=== PATIENT | male | born 1985 | race Caucasian/White ===

== ENCOUNTER 2017-08-12 09:44 | Emergency (ER) | payer OTHER ==
[2017-08-12 09:53] VITALS: BP 155/102; PULSE 63; TEMP 98.3; BMI 32.9
[2017-08-12] MEDS ORDERED: IBUPROFEN 600 MG TABLET (FP) PO ONE ×2 (10:58→10:59)
--- NOTE | 2017-08-12 11:06 | PDOC ---
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 States pain is worse on the right than the left, however is ambulatory. Denies numbness or tingling to feet. No other injury Occurred: reports: just prior to arrival, this morning Severity: reports: mild, moderate Pain Location: reports: lower extremity (bilateral upper lateral knee area) Method of Injury: Yes: direct blow Modifying Factors: improves with: None Loss of Consciousness: no loss of consciousness Associated Symptoms (Fall): denies symptoms Past History - Travel Traveled outside of the country in the last 30 days: No Close contact w/someone who was outside of country & ill: No - Past Medical History Allergies/Adverse Reactions: Allergies Allergy/AdvReac Type Severity Reaction Status Date / Time No Known Allergies Allergy Verified 08/12/17 09:48 Home Medications: Ambulatory Orders Ibuprofen 600 mg PO Q6H PRN #30 tablet 08/12/17 COPD: No Other medical history: denies. - Suicide/Smoking/Psychosocial Hx Smoking History: Current every day smoker Have you smoked in the past 12 months: Yes Number of Cigarettes Smoked Daily: 1 Information on smoking cessation initiated: No Review of Systems - Review of Systems Able to Perform ROS?: Yes Is the patient limited Macedonian proficient: Yes Constitutional: Yes: See HPI. No: Symptoms Reported, Malaise HEENTM: No: Symptoms Reported Musculoskeletal: Yes: Symptoms Reported, See HPI, Joint Pain, Muscle Pain Integumentary: Yes: Symptoms Reported, See HPI, Bruising, Rash Neurological: No: Symptoms reported All Other Systems: Reviewed and Negative *Physical Exam - Vital Signs Last Vital Signs Temp Pulse Resp BP Pulse Ox 98.3 F 63 19 155/102 96 08/12/17 09:49 08/12/17 09:49 08/12/17 09:49 08/12/17 09:49 08/12/17 09:49 - Physical Exam General Appearance: Yes: Nourished, Appropriately Dressed, Apparent Distress, Mild Distress HEENT: positive: [place], Normal ENT Inspection, TMs Normal, Pharynx Normal Neck: positive: Supple. negative: Tender Respiratory/Chest: positive: Lungs Clear Gastrointestinal/Abdominal: positive: Soft. negative: Normal Bowel Sounds Musculoskeletal: positive: Decreased Range of Motion (tenderness without deformity noted to the superior aspect of his right knee joint. Has mild tenderness along the medial and lateral aspect, patella tendon appears intact and able to extend and contract her quadriceps. Neurovascular intact to foot. Has no broken skin, no crepitus or step-offs. Ambulatory but is painful). negative: Normal Inspection, Vertebral Tenderness Extremity: positive: Normal Capillary Refill, Normal Inspection, Swelling. negative: Normal Range of Motion Integumentary: positive: Normal Color, Dry, Warm, Pale Neurologic: positive: sawyer helper II-XII NML intact, Fully Oriented, Alert, Normal Mood/ Affect, Normal Response ED Treatment Course - RADIOLOGY Radiology Studies Ordered: Category Date Time Status KNEE 3 POS-RIGHT [RAD] Stat Radiology 08/12/17 10:58 Ordered Progress Note - Progress Note Progress Note: X-ray negative for fractures or dislocation, knee with full and around knee immobilizer placed and will follow-up with orthopedist *DC/Admit/Observation/Transfer Diagnosis at time of Disposition: Right knee sprain Qualifiers: Encounter type: initial encounter Involved ligament of knee: unspecified ligament Qualified Code(s): S83.91XA - Sprain of unspecified site of right knee , initial encounter - Discharge Dispostion Disposition: HOME Condition at time of disposition: Stable Admit: No - Prescriptions Prescriptions: Ibuprofen 600 mg PO Q6H PRN #30 tablet PRN Reason: Pain - Referrals Referrals: Lewis Bean MD [Staff Physician] - - Patient Instructions Printed Discharge Instructions: DI for Knee Sprain Additional Instructions: Rest, ice to area on and off for 15 minutes 4-6 times a day Avoid heavy lifting or exercise until pain and swelling is resolved or until further directed Keep area highly elevated to reduce swelling Use splints/Martin wrap as directed Followup with orthopedist in one to 2 days if not improving, if significantly improved may wait one week for followup with orthopedist May use ibuprofen 2-200 mg tablets every 6 hours as needed for pain - Post Discharge Activity Forms/Work/School Notes: Back to Work
== END 2017-08-12 13:14 | disposition home or self-care (01) ==
LOC: JERFT 09:44
PROC: 2W3QXYZ Immobilization of Right Lower Leg using Other Device (ICD-10-PCS; principal; 2017-08-12)
DX: S83.91XA Sprain of unspecified site of right knee, initial encounter (principal); S83.92XA Sprain of unspecified site of left knee, initial encounter; W20.1XXA Struck by object due to collapse of building, initial encounter; Y93.H3 Activity, building and construction; Y92.61 Building [any] under construction as the place of occurrence of the external cause; Y99.0 Civilian activity done for income or pay
CPT/HCPCS: 73562-TC-RT-FY; 99281-25